=== PATIENT | female | born 1975 | race Caucasian/White ===

== ENCOUNTER 2016-11-19 13:07 | Emergency (ER) | payer MEDICARE, MEDICAID ==
--- NOTE | 2016-11-19 14:38 | ER Document Report ---
ED Syncope and Near Syncope - General Mode of Arrival: Ambulatory Information source: Patient TRAVEL OUTSIDE OF THE [place] IN LAST 30 DAYS: No - HPI Patient complains to provider of: Fainting Episode witnessed (by whom): Yes Symptoms prior to episode: None Quality of pain: No pain Similar symptoms previously: Yes Recently seen / treated by doctor: Yes <ALLIE GALINDO - Last Filed: 11/19/16 14:45> <NIKKY ALVARADO - Last Filed: 11/19/16 15:22> - General Chief Complaint: Syncope Stated Complaint: POSSIBLE SYNCOPE Time Seen by Provider: 11/19/16 14:14 Notes: Patient is a 41 year old female that presents to the emergency department today with complaints of a syncopal episode that occurred just prior to arrival. Patient states that she was at a doctor's appointment today, taking and when she "passed out". Patient states she is getting a medication refill from [facility] and see. Patient states she has had 3 episodes like this in the past, and years 2007, 2009, 2012. Patient states all events were similar to this 1. Patient states when she wakes up she is 100% normal and has no symptoms or deficits. Patient states she was told in the past that they were unsure if they were seizures or a cardiac event. (ALLIE GALINDO) - Related Data Allergies/Adverse Reactions: aspirin [Aspirin] Allergy (Verified 02/23/15 11:41) Cephalosporins Allergy (Verified 02/23/15 11:41) clindamycin [Clindamycin] Allergy (Verified 02/23/15 11:41) codeine [Codeine] Allergy (Verified 02/23/15 11:41) erythromycin base [Erythromycin Base] Allergy (Verified 02/23/15 11:41) hydrocodone [Hydrocodone] Allergy (Verified 02/23/15 11:41) levetiracetam [From Keppra] Allergy (Verified 02/23/15 11:41) metoclopramide HCl [From Reglan] Allergy (Verified 02/23/15 11:41) NSAIDS (Non-Steroidal Anti-Inflamma [Nsaids] Allergy (Verified 02/23/15 11:41) Home Medications: Current Home Medications Alprazolam [Xanax 0.5 mg Tablet] 0.5 mg PO Q8HP PRN 11/19/16 [History] Alprazolam [Xanax] 2 mg PO DAILY 11/19/16 [History] Buprenorphine [Butrans] 10 mcg TD SUMO@1000 11/19/16 [History] Gabapentin [Neurontin 100 mg Capsule] 200 mg PO TID@0600,1200,1800 11/19/16 [ History] Gabapentin [Neurontin 300 mg Capsule] 300 mg PO QHS 11/19/16 [History] Oxycodone HCl/Acetaminophen [Oxycodone-Acetaminophen 5-325] 1 tab PO Q12HP PRN 11/19/16 [History] Zolpidem Tartrate [Ambien 5 mg Tablet] 5 mg PO HSP PRN 11/19/16 [History] Past Medical History - General Information source: Patient - Social History Smoking Status: Never Smoker Cigarette use (# per day): No Chew tobacco use (# tins/day): No Frequency of alcohol use: None Drug Abuse: None Lives with: Family Family History: Reviewed & Not Pertinent Pulmonary Medical History: Reports: Hx Asthma Neurological Medical History: Reports: Hx Seizures Renal/ Medical History: Reports: Hx Kidney Stones Traumatic Medical History: Reports: Hx Fractures Past Surgical History: Reports: Hx Orthopedic Surgery - left hip, Hx Thyroid Surgery - Immunizations Immunizations up to date: Yes Hx Diphtheria, Pertussis, Tetanus Vaccination: No <ALLIE GALINDO - Last Filed: 11/19/16 14:45> Review of Systems - Review of Systems Constitutional: No symptoms reported EENT: No symptoms reported Cardiovascular: See HPI, Syncope. denies: Chest pain, Palpitations Respiratory: No symptoms reported Gastrointestinal: No symptoms reported Genitourinary: No symptoms reported Female Genitourinary: No symptoms reported Musculoskeletal: No symptoms reported Skin: No symptoms reported Hematologic/Lymphatic: No symptoms reported Neurological/Psychological: See HPI. denies: Weakness, Numbness, Tingling -: Yes All other systems reviewed and negative <ALLIE GALINDO - Last Filed: 11/19/16 14:45> Physical Exam <ALLIE GALINDO - Last Filed: 11/19/16 14:45> <NIKKY ALVARADO - Last Filed: 11/19/16 15:22> - Vital signs Vitals: Temp Pulse Resp BP Pulse Ox 98.5 F 92 18 122/81 95 11/19/16 13:20 11/19/16 13:20 11/19/16 13:20 11/19/16 13:20 11/19/16 13:20 - Notes Notes: Physical Exam: General: Alert, appears well. HEENT: Normocephalic. Atraumatic. PERRL. Extraocular movements intact. Oropharynx clear. Neck: Supple. Non-tender. Respiratory: No respiratory distress. Clear and equal breath sounds bilaterally. Cardiovascular: Regular rate and rhythm. Abdominal: Normal Inspection. Non-tender. No distension. Normal Bowel Sounds. Back: Non-tender. No deformity or step off. Extremities: Moves all four extremities. Upper extremities: Normal inspection. Normal ROM. Lower extremities: Normal inspection. No edema. Normal ROM. Neurological: Normal cognition. AAOx4. Normal speech. No focal neurological deficits. Psychological: Normal affect. Normal Mood. Skin: Warm. Dry. Normal color. (ALLIE GALINDO) Course - EKG Interpretation by Ri EKG shows normal: Sinus rhythm, [place]. abnormal: Intervals - Prolonged QT interval, QRS Complexes - Borderline R-wave progression in the anterior leads, ST-T Waves - Diffuse nonspecific T-wave abnormalities Rate: Normal - 81 Rhythm: NSR Voltage: Decreased voltage, Throughout When compared to previous EKG there are: Previous EKG unavailable <NIKKY ALVARADO - Last Filed: 11/19/16 15:22> - Vital Signs Vital signs: Temp Pulse Resp BP Pulse Ox 98.5 F 92 18 122/81 95 11/19/16 13:20 11/19/16 13:20 11/19/16 13:20 11/19/16 13:20 11/19/16 13:20 Discharge <ALLIE GALINDO - Last Filed: 11/19/16 14:45> <NIKKY ALVARADO - Last Filed: 11/19/16 15:22> - Discharge Clinical Impression: Syncope and collapse Condition: Stable Disposition: HOME, SELF-CARE Additional Instructions: Syncopal Episode Syncope (fainting or near-fainting) can occur from many different health problems. Or it can be a simple fainting spell requiring no treatment. It is safe for you to go home, but further evaluation will likely be necessary. Your work-up may include tests for internal bleeding, heart disease, medication problems, or near-strokes. Tests are not always required, however, depending on the nature of your problem. The warning signs of an impending faint include: dizziness, lightheadedness , nausea, hot flashes, tingling, and weakness. If this happens, lay down and put your feet up, then wait until all of these symptoms have passed before standing up again. If these episodes become recurrent, or if you develop chest pain, heart palpitations, mental confusion, blurred vision, or headache, then you should call the physician, or go to the emergency room. Follow-up with your new primary care provider to discuss further workup of your syncopal episodes. Scribe Attestation: 11/19/16 15:22 I personally performed the services described in the documentation, reviewed and edited the documentation which was dictated to the scribe in my presence, and it accurately records my words and actions. (NIKKY ALVARADO) [employer] Documentation - Scribe Written by Ravinder:: Ravinder Cooley, 11/19/2016 1446 acting as scribe for :: Theron <ALLIE GALINDO - Last Filed: 11/19/16 14:45>
[2016-11-19 15:47] VITALS: BP 114/85
--- NOTE | 2016-11-20 04:45 | EKG REPORT ---
SEVERITY:- ABNORMAL ECG - SINUS RHYTHM LOW VOLTAGE THROUGHOUT BORDERLINE R WAVE PROGRESSION, ANTERIOR LEADS NONSPECIFIC T ABNORMALITIES, DIFFUSE LEADS PROLONGED QT INTERVAL : Confirmed by: Aminata Ware MD 20-Nov-2016 04:27:58
== END 2016-11-19 15:43 | disposition home or self-care (01) ==
LOC: ER 13:07
DX: R55 Syncope and collapse (principal); Z88.6 Allergy status to analgesic agent; Z88.3 Allergy status to other anti-infective agents; Z87.442 Personal history of urinary calculi
CPT/HCPCS: 93005; 93010; 99284

== ENCOUNTER 2017-11-13 14:17 | Emergency (ER) | payer MEDICARE ==
[2017-11-13 14:28] VITALS: BP 122/81
[2017-11-13] MEDS ORDERED: ALPRAZOLAM 0.5 MG TABLET PO ONE (15:20)
[2017-11-13] MEDS ORDERED: ACETAMINOPHEN 325 MG TABLET PO ONE (15:20)
--- NOTE | 2017-11-13 15:22 | ER Document Report ---
ED General - General Chief Complaint: Probable Seizure Stated Complaint: POSSIBLE SEIZURE, ANKLE PAIN Time Seen by Provider: 11/13/17 15:19 Mode of Arrival: Ambulatory Information source: Patient Notes: 42-year-old female with seizures, asthma, hypothyroidism, previous compression fractures presents via EMS from home after having a seizure and falling to the floor off of her bed. Patient takes Lamictal and alprazolam for her seizures. She denies any missed doses of her medication. She states just prior to her seizure she got into an argument with her mother. She denies any recent illness. She is currently complaining of upper back pain and right lower extremity pain. Daughter is with the patient and states that she witnessed a seizure which was typical of her previous seizures. TRAVEL OUTSIDE OF THE [place] IN LAST 30 DAYS: No - HPI Onset: Just prior to arrival Onset/Duration: Sudden Quality of pain: Throbbing Severity: Mild Associated symptoms: denies: Chest pain, Fever, Nausea, Vomiting Exacerbated by: Movement Relieved by: Remaining still Similar symptoms previously: No Recently seen / treated by doctor: No - Related Data Allergies/Adverse Reactions: aspirin [Aspirin] Allergy (Verified 11/13/17 14:23) Cephalosporins Allergy (Verified 11/13/17 14:23) clindamycin [Clindamycin] Allergy (Verified 11/13/17 14:23) codeine [Codeine] Allergy (Verified 11/13/17 14:23) erythromycin base [Erythromycin Base] Allergy (Verified 11/13/17 14:23) hydrocodone [Hydrocodone] Allergy (Verified 11/13/17 14:23) levetiracetam [From Keppra] Allergy (Verified 11/13/17 14:23) metoclopramide HCl [From Reglan] Allergy (Verified 11/13/17 14:23) NSAIDS (Non-Steroidal Anti-Inflamma [Nsaids] Allergy (Verified 11/13/17 14:23) Past Medical History - General Information source: Patient, Relative, [facility] Records - Social History Smoking Status: Unknown if Ever Smoked Frequency of alcohol use: None Drug Abuse: None Lives with: Family Family History: Reviewed & Not Pertinent Patient has suicidal ideation: No Patient has homicidal ideation: No Pulmonary Medical History: Reports: Hx Asthma Neurological Medical History: Reports: Hx Seizures Renal/ Medical History: Reports: Hx Kidney Stones. Denies: Hx Peritoneal Dialysis Traumatic Medical History: Reports: Hx Fractures Past Surgical History: Reports: Hx Orthopedic Surgery - left hip, Hx Thyroid Surgery - Immunizations Immunizations up to date: Yes Hx Diphtheria, Pertussis, Tetanus Vaccination: No Review of Systems - Review of Systems Notes: REVIEW OF SYSTEMS: CONSTITUTIONAL : Denies fever, chills, or sweats. Denies recent illness. Denies weight loss, recent hospitalizations. EENT: Denies visual changes, eye pain. Denies sore throat, oral lesions, difficulty swallowing. CARDIOVASCULAR: Denies chest pain. Denies palpitations. Denies lower extremity edema. RESPIRATORY: Denies cough. Denies shortness of breath, wheezing. GASTROINTESTINAL: Denies abdominal pain or distention. Denies nausea, vomiting , or diarrhea. Denies blood in vomitus, stools, or per rectum. Denies black, tarry stools. Denies constipation. GENITOURINARY: Denies difficulty urinating, painful urination, frequency, blood in urine, or vaginal discharge. MUSCULOSKELETAL: Denies neck pain or stiffness. SKIN: Denies rash, lesions or sores. HEMATOLOGIC : Denies easy bruising or bleeding. LYMPHATIC: Denies swollen glands. NEUROLOGICAL: Denies confusion or altered mental status. Denies loss of consciousness. Denies dizziness or lightheadedness. Denies headache. Denies weakness or paralysis. Denies problems difficulty with ambulation, slurred speech. Denies sensory loss, numbness, or tingling. Denies seizures. PSYCHIATRIC: Denies anxiety or stress. Denies depression, suicidal ideation, or homicidal ideation. Denies visual or auditory hallucinations. Physical Exam - Vital signs Vitals: Temp Pulse Resp BP Pulse Ox 98.6 F 83 16 122/81 99 11/13/17 14:27 11/13/17 14:27 11/13/17 14:27 11/13/17 14:27 11/13/17 14:27 - Notes Notes: PHYSICAL EXAMINATION: GENERAL: Well-appearing, well-nourished and in no acute distress. HEAD: Atraumatic, normocephalic. EYES: Pupils equal round and reactive to light, extraocular movements intact, conjunctiva are normal. ENT: Nares patent, oropharynx clear without exudates. Moist mucous membranes. NECK: Normal range of motion, supple without lymphadenopathy LUNGS: Breath sounds clear to auscultation bilaterally and equal. No wheezes rales or rhonchi. HEART: Regular rate and rhythm without murmurs ABDOMEN: Soft, nontender, nondistended abdomen. No guarding, no rebound. No masses appreciated. Female : deferred Musculoskeletal: Midline tenderness to the thoracic spine levels of T4-T7 no obvious deformity or step-off. Tenderness palpation along the right lateral malleolus and right lateral aspect of the right tibia. No obvious deformity. DP and PT pulse intact. Cap refill less than 2 seconds. Patient able to wiggle her toes. Sensation intact. NEUROLOGICAL: Cranial nerves grossly intact. Normal speech, normal gait. Normal sensory, motor exams PSYCH: Normal mood, normal affect. SKIN: Warm, Dry, normal turgor, no rashes or lesions noted. Course - Re-evaluation Re-evalutation: Ankle X-Ray 11/13/17 15:20 IMPRESSION: Nondisplaced spiral fracture distal right fibula. Thoracic Spine X-Ray 11/13/17 15:20 IMPRESSION: There is anterior wedging and compression of several thoracic vertebra in the mid and upper thoracic spine which are age indeterminate. Clinical correlation is recommended. Other findings as noted above Tibia/Fibula X-Ray 11/13/17 15:20 IMPRESSION: Fracture of the distal fibula as noted above. No other evidence for fracture is seen. 11/15/17 08:12 42-year-old female with known seizure history presents after a seizure which caused her to fall out of bed. Exam is significant for midline tenderness of the thoracic spine and lateral tenderness of the right lower extremity. Vital signs reviewed upon arrival. Patient is in no acute distress. Previous medical records were reviewed. Discussed findings of the thoracic spine with the patient states that she believes that these are all old fractures that she sustained earlier this year. We also found a nondisplaced spiral fracture of the distal right fibula. Patient was placed in a posterior splint. She has a wheelchair for home but a prescription walker was administered. Patient advised to weight-bear as tolerated, ice, elevate and follow-up with orthopedic surgeon in the next 3-5 days. Patient requesting a prescription for alprazolam until she can get medication refilled on Saturday. Patient was given 5 0.5 mg alprazolam. Patient also requesting something stronger than Tylenol for pain. I discussed at length the patient should be taking alprazolam and a pain medication at the same time. She expresses understanding and because of her limited transportation, access to her primary care physician in the next 48 hours I have agreed to a give her a few doses of her alprazolam. Patient provided the opportunity to ask questions, and express concerns. Discharge instructions discussed. Patient is agreeable with discharge home. Return indications explained and discussed with the patient who displays understanding. Patient encouraged to return to the emergency department immediately with any concerns. Results were discussed with the patient at this point, after careful consideration I feel that that patient can be discharged from the emergency department, the patient was educated treatments and reasons to return to the emergency department based on their presumed diagnosis as noted above, they were advised to followup with a primary care physician in 2-3 days. Patient was agreeable to plan of care. Dictation on this chart was performed using voice recognition software and may result in unintended grammatical, spelling, syntax or errors. Patient was provided copies of her imaging to bring to her orthopedic surgeon. - Vital Signs Vital signs: Temp Pulse Resp BP Pulse Ox 98.6 F 83 16 122/81 99 11/13/17 14:27 11/13/17 14:27 11/13/17 14:27 11/13/17 14:27 11/13/17 14:27 - Diagnostic Test Radiology reviewed: Image reviewed, Reports reviewed Discharge - Discharge Clinical Impression: Compression fracture of body of thoracic vertebra, Seizure Fracture of distal end of fibula Qualifiers: Encounter type: initial encounter Fracture type: closed Fracture morphology: other fracture Laterality: right Qualified Code(s): S82.831A - Other fracture of upper and lower end of right fibula, initial encounter for closed fracture Fall Qualifiers: Encounter type: initial encounter Qualified Code(s): W19.XXXA - Unspecified fall, initial encounter Condition: Good Disposition: HOME, SELF-CARE Instructions: Compression Fracture of the Spine ([facility]), Fracture of Distal Fibula ([facility]), Seizure, Known Epileptic ([facility]) Additional Instructions: Please remain nonweightbearing on the right leg until seen by orthopedic surgery. Please elevate and ice the leg whenever possible. Please do not remove your splint until seen by orthopedics. Follow up with your physician tomorrow for further care or return to the ED IMMEDIATELY if symptoms worsen or new concerns occur. If you cannot afford to follow up with your primary care physician a list of low cost clinics have been provided at the end of your discharge papers as well. Most prescribed medications have multiple side effects. The safest thing to do is when filling your prescription please speak to your pharmacist regarding possible interactions with your normal home medications and over the counter medications such as Ibuprofen, Tylenol, Benadryl.. If you experience any symptoms that cause you discomfort or concern you should discontinue the medication immediately and return to the emergency room or call your primary care physician. I have provided you with your home medication of alprazolam until you can be seen by her primary care physician. Do not take this medication with the Percocet. The combination of these 2 medications could you lead to respiratory depression and . Only use the alprazolam for seizures. Prescriptions: Alprazolam 0.5 mg PO Q12H #4 tablet Oxycodone HCl/Acetaminophen [Percocet 5-325 mg Tablet] 1 tab PO Q6H PRN #12 tablet PRN Reason: Walker [Folding Walker] 1 each [facility] ASDIR PRN #1 each PRN Reason: Referrals: LUCRETIA BOWENS MD [ACTIVE STAFF] - Follow up as needed
--- NOTE | 2017-11-13 16:18 | RADIOLOGY REPORT (SQ) ---
EXAM DESCRIPTION: T SPINE AP/LAT COMPLETED DATE/TIME: 11/13/2017 4:04 pm REASON FOR STUDY: fall COMPARISON: None. NUMBER OF VIEWS: Two views. TECHNIQUE: AP and lateral radiographic images acquired of the thoracic spine. LIMITATIONS: None. FINDINGS: MINERALIZATION: Normal. ALIGNMENT: There is a mild thoracic scoliosis in the upper thoracic spine convexed to the left. An e xaggerated thoracic kyphosis is identified VERTEBRAE: There is anterior wedging and compression of several thoracic vertebra in mid and upper th oracic spine which are age indeterminate. DISCS: No significant loss of height or significant narrowing. No large osteophytes. HARDWARE: None in the spine. MEDIASTINUM AND SOFT TISSUES: Normal heart size and aortic contour. No soft tissue abnormality. VISUALIZED LUNG COHN: Clear. OTHER: No other significant finding. IMPRESSION: There is anterior wedging and compression of several thoracic vertebra in the mid and up per thoracic spine which are age indeterminate. Clinical correlation is recommended. Other findings as noted above TECHNICAL DOCUMENTATION: JOB ID: [id number] [employer]- All Rights Reserved Reading location - IP/workstation name: [email or web address]
--- NOTE | 2017-11-13 16:23 | RADIOLOGY REPORT (SQ) ---
EXAM DESCRIPTION: ANKLE RIGHT COMPLETE COMPLETED DATE/TIME: 11/13/2017 4:05 pm REASON FOR STUDY: fall COMPARISON: None. NUMBER OF VIEWS: Three views. TECHNIQUE: AP, lateral, and oblique radiographic images acquired of the right ankle. LIMITATIONS: None. FINDINGS: There is spiral fracture fracture of the distal right fibula. No significant displacement . The ankle mortise remains symmetrical. No ankle effusion. . IMPRESSION: Nondisplaced spiral fracture distal right fibula. TECHNICAL DOCUMENTATION: JOB ID: [id number] [employer]- All Rights Reserved Reading location - IP/workstation name: [email or web address]
--- NOTE | 2017-11-13 16:30 | RADIOLOGY REPORT (SQ) ---
EXAM DESCRIPTION: TIBIA FIBULA RIGHT COMPLETED DATE/TIME: 11/13/2017 4:05 pm REASON FOR STUDY: fall COMPARISON: None. NUMBER OF VIEWS: Two views. TECHNIQUE: Two radiographic images acquired of the right tibia and fibula to include the knee and an kle in at least one projection. LIMITATIONS: None. FINDINGS: MINERALIZATION: Normal. BONES: Comminuted fracture of the distal fibular diaphysis is identified. No other evidence for frac ture is seen. SOFT TISSUES: No obvious swelling or foreign body. OTHER: No other significant finding. IMPRESSION: Fracture of the distal fibula as noted above. No other evidence for fracture is seen. TECHNICAL DOCUMENTATION: JOB ID: [id number] [employer]- All Rights Reserved Reading location - IP/workstation name: [email or web address]
[2017-11-13] MEDS ORDERED: OXYCODONE-ACETAMINOPHEN 5-325 MG TABLET PO ONE (16:40)
== END 2017-11-13 17:05 | disposition home or self-care (01) ==
LOC: ER 14:17
DX: S82.831A Other fracture of upper and lower end of right fibula, initial encounter for closed fracture (principal); M48.54XA Collapsed vertebra, not elsewhere classified, thoracic region, initial encounter for fracture; R56.9 Unspecified convulsions; W06.XXXA Fall from bed, initial encounter; Y92.009 Unspecified place in unspecified non-institutional (private) residence as the place of occurrence of the external cause; Z88.6 Allergy status to analgesic agent; Z88.3 Allergy status to other anti-infective agents; Z87.442 Personal history of urinary calculi
CPT/HCPCS: 99284; 73610; 72070; 73590; 29515; A9270